=== PATIENT | male | born 1995 | race Caucasian/White ===

== ENCOUNTER 2019-04-29 19:08 | Emergency (ER) | payer OTHER ==
[~2019-04-29] VITALS: Ht 177.8 cm; Wt 81.6 kg
[2019-04-29 19:21] VITALS: BP_SYST 118
--- NOTE | 2019-04-29 19:24 | NUR ---
Patient to ER bed 04 for evaluation. Side rails up.
--- NOTE | 2019-04-29 19:30 | NUR ---
Patient is alert and oriented. Pt C/O back pain to right side S/P pulling muscles during work activity. Pain stated 12/24. VSS. Family at bedside. Will continue to monitor.
--- NOTE | 2019-04-29 19:40 | NUR ---
ER MD STROUD AT BEDSIDE EXAMINING PATIENT.
[2019-04-29] MEDS ORDERED: KETOROLAC TROMETHAMINE 60 MG/2 ML VIAL IM ONE (19:45)
[2019-04-29] MEDS ORDERED: METHOCARBAMOL 500 MG TABLET PO ONE (19:45)
--- NOTE | 2019-04-29 20:45 | NUR ---
Pt to CT with radio interference supervisor.
--- NOTE | 2019-04-29 21:00 | NUR ---
Patient back from CT. Patient in bed, side rails up.
[2019-04-29 21:50] VITALS: BP_SYST 120
--- NOTE | 2019-04-29 21:50 | NUR ---
Patient given written and verbal discharge instructions and verbalizes understanding. ER MD Marmolejo discussed with patient the results and treatment provided. Patient in stable condition. ID arm band removed. Rx of norco and ibprophen given. Patient educated on pain management and to follow up with PMD. Pain Scale 2/10. Opportunity for questions provided and answered. Medication side effect fact sheet provided.
== END 2019-04-29 21:50 | disposition home or self-care (01) ==
LOC: SED 19:08
DX: M43.16 Spondylolisthesis, lumbar region (principal)
CPT/HCPCS: 72128; 72131; 96372; 99284; J1885